=== PATIENT | female | born 1995 | race Caucasian/White ===

== ENCOUNTER 2020-09-27 07:39 | Emergency (ER) | payer BC, OTHER ==
--- NOTE | 2020-09-27 08:03 | EDM.PDOC ---
ED HPI GENERAL MEDICAL PROBLEM - General Chief Complaint: Abdominal Pain Stated Complaint: abd pain Time Seen by Provider: 09/27/20 07:46 Source of Information: Reports: Patient History Limitations: Reports: No Limitations - History of Present Illness INITIAL COMMENTS - FREE TEXT/NARRATIVE: Patient comes in the emergency department complaint of right upper abdominal/flank discomfort. Patient states that she is 20 weeks 2 para 0And states that she started having discomfort on the right upper quadrant/flank region yesterday throughout the day as she was drinking water though discomfort did get better throughout the day however this morning she woke up in significant amount of discomfort. She states it is reproducible and when she is rubbing it it does feel little bit better however she states that the constant discomfort in the right upper flank radiating to the right upper quadrant In the front of her abdomen. Patient denies any trauma, bleeding, hesitancy, burning with urination patient states that she has been feeling relatively well and has not had any major concerns. She has noticed that this morning that she is more nauseated than she has been in the past. She denies any chest pain, shortness of breath, dizziness, lightheadedness, abdominal cramping, genitourinary concerns, or peripheral edema. Patient states that she is been relatively healthy and has no major concerns or complaints this morning. Onset: Gradual Quality: Reports: Other Severity: Mild Improves with: Reports: Rest Worsens with: Reports: Movement Associated Symptoms: Reports: No Other Symptoms Right Abdominal Pain Score (Numeric/FACES): 7 - Related Data Allergies Allergy/AdvReac Type Severity Reaction Status Date / Time acetaminophen [From [place]] AdvReac Vomiting Verified 09/27/20 09:12 hydrocodone [From [facility]] AdvReac Vomiting Verified 09/27/20 09:12 Home Meds: Home Meds No122/Iron/Folic Acid [ Multi Tablet] 1 each PO DAILY 09/27/20 [History] ED ROS GENERAL - Review of Systems Review Of Systems: See Below Constitutional: Reports: No Symptoms HEENT: Reports: No Symptoms Respiratory: Reports: No Symptoms Cardiovascular: Reports: No Symptoms Endocrine: Reports: No Symptoms : Reports: No Symptoms Musculoskeletal: Reports: No Symptoms Skin: Reports: No Symptoms Neurological: Reports: No Symptoms Psychiatric: Reports: No Symptoms Hematologic/Lymphatic: Reports: No Symptoms Immunologic: Reports: No Symptoms ED EXAM, GENERAL - Physical Exam Exam: See Below Exam Limited By: No Limitations General Appearance: Alert, WD/WN, No Apparent Distress Throat/Mouth: Normal Inspection, Normal Lips, No Airway Compromise Head: Atraumatic, Normocephalic Neck: Normal Inspection, Supple, Non-Tender, Full Range of Motion Respiratory/Chest: No Respiratory Distress, No Accessory Muscle Use, Chest Non- Tender Cardiovascular: Normal Peripheral Pulses, Regular Rate, Rhythm, No Edema GI/Abdominal: Normal Bowel Sounds, Soft, Other (fundal height 22 weeks, heart tone 145 ) Back Exam: Normal Inspection, Full Range of Motion, CVA Tenderness (R) Extremities: Normal Inspection, Normal Range of Motion, Non-Tender, No Pedal Edema, Normal Capillary Refill Neurological: Alert, Oriented, CN II-XII Intact, Normal Cognition, Normal Gait Psychiatric: Normal Affect, Normal Mood Skin Exam: Warm, Dry, Intact, Normal Color, No Rash Course - Vital Signs Last Recorded V/S: Last Vital Signs Temp 36.6 C 09/27/20 07:40 Pulse 88 09/27/20 07:40 Resp 16 09/27/20 07:40 BP 108/45 L 09/27/20 07:40 Pulse Ox 97 09/27/20 07:40 - Orders/Labs/Meds Orders: Active Orders 24 hr Category Date Time Status CULTURE URINE [RM] Stat Lab 09/27/20 08:10 Received Sodium Chloride 0.9% [Normal Saline] 1,000 ml Med 09/27/20 09:00 Active IV ONETIME Sodium Chloride 0.9% [Saline Flush] Med 09/27/20 08:48 Active 10 ml FLUSH ASDIRECTED PRN Peripheral IV Insertion Adult [OM.PC] Stat Oth 09/27/20 08:47 Ordered Medication Orders Sodium Chloride (Normal Saline) 1,000 mls @ 999 mls/hr IV ONETIME ONE Stop: 09/27/20 10:00 Last Admin: 09/27/20 09:01 Dose: 999 mls/hr Documented by: MAKSIM Sodium Chloride (Saline Flush) 10 ml FLUSH ASDIRECTED PRN PRN Reason: Keep Vein Open Labs: Laboratory Tests 09/27/20 09/27/20 09/27/20 Range/Units 08:09 08:09 08:10 WBC 7.2 (4.0-10.0) x10^3/uL RBC 3.55 L (4.00-5.50) x10^6/uL Hgb 11.4 L (12.0-16.0) g/dL Hct 33.6 (33.0-47.0) % MCV 94.6 H (78.0-93.0) fL MCH 32.1 H (26.0-32.0) pg MCHC 33.9 (32.0-36.0) g/dL RDW Coeff of Zonia 13.6 (10.0-15.0) % Plt Count 274 (130-400) x10^3/uL Neut % (Auto) 72.6 (50.0-80.0) % Lymph % (Auto) 19.1 L (25.0-50.0) % [place] % (Auto) 6.1 (2.0-11.0) % Eos % (Auto) 1.8 (0.0-4.0) % Baso % (Auto) 0.4 (0.2-1.2) % Sodium 138 (136-145) mmol/L Potassium 3.8 (3.5-5.1) mmol/L Chloride 103 (98-107) mmol/L Carbon Dioxide 24 (21-32) mmol/L Anion Gap 14.8 (5-15) mmol/L BUN 8 (7-18) mg/dL Creatinine 0.6 (0.55-1.02) mg/dL Est Cr Clr Drug Dosing TNP Estimated GFR (MDRD) > 60 Glucose 79 (74-106) mg/dL Calcium 8.8 (8.5-10.1) mg/dL Corrected Calcium 9.60 (8.5-10.1) mg/dL Total Bilirubin 0.4 (0.2-1.0) mg/dL AST 11 L (15-37) U/L ALT 19 (14-59) U/L Alkaline Phosphatase 81 (46-116) U/L Total Protein 6.8 (6.4-8.2) g/dL Albumin 3.0 L (3.4-5.0) g/dL Globulin 3.8 Albumin/Globulin Ratio 0.79 Urine Color Yellow (YELLOW) Urine Appearance Turbid H (CLEAR) Urine pH 5.5 (5.0-8.0) Ur Specific [place] 1.020 Urine Protein Negative (NEGATIVE) mg/dL Urine Glucose (UA) Negative (NEGATIVE) mg/dL Urine Ketones Negative (NEGATIVE) mg/dL Urine Occult Blood Negative (NEGATIVE) Urine Nitrite Negative (NEGATIVE) Urine Bilirubin Negative (NEGATIVE) Urine Urobilinogen 0.2 (0.2) EU/dL Ur Leukocyte Esterase Small H (NEGATIVE) Urine RBC 0-5 (NOT SEEN) /HPF Urine WBC 5-10 H (NOT SEEN) /HPF Ur Squamous Epith Cells Many H (NEGATIVE) /HPF Amorphous Sediment Many Urine Bacteria Few H (NEGATIVE) /HPF Urine Mucus Few H (NEGATIVE) /LPF Meds: Medications Generic Name Dose Route Start Last Admin Trade Name Freq PRN Reason Stop Dose Admin Sodium Chloride 1,000 mls @ 999 mls/hr 09/27/20 09:00 09/27/20 09:01 Normal Saline IV 09/27/20 10:00 999 mls/hr ONETIME ONE Administration Sodium Chloride 10 ml 09/27/20 08:48 Saline Flush FLUSH ASDIRECTED PRN Keep Vein Open Discontinued Medications Generic Name Dose Route Start Last Admin Trade Name Freq PRN Reason Stop Dose Admin Hydromorphone HCl 0.5 mg 09/27/20 08:48 09/27/20 09:00 Dilaudid IV 09/27/20 08:49 0.5 mg ONETIME ONE Administration Ondansetron HCl 4 mg 09/27/20 07:52 09/27/20 08:07 Zofran Odt PO 09/27/20 07:53 4 mg ONETIME ONE Administration Departure - Departure Time of Disposition: 09:25 Disposition: Home, Self-Care 01 Condition: Good Clinical Impression: Flank pain Abdominal pain Qualifiers: Abdominal location: right upper quadrant Qualified Code(s): R10.11 - Right upper quadrant pain - Discharge Information *PRESCRIPTION DRUG MONITORING PROGRAM REVIEWED*: Not Applicable *COPY OF PRESCRIPTION DRUG MONITORING REPORT IN PATIENT MAYA: Not Applicable Instructions: Flank Pain, Adult, [id number] Forms: ED Department Discharge Additional Instructions: 1. Please report directly to [facility] Emergency Room 2. Please do not eat or drink anything prior to arrival to [facility] or make any unnecessary stops Sepsis Event Note (ED) - Focused Exam Vital Signs: Vital Signs Temp Pulse Resp BP Pulse Ox 09/27/20 07:40 36.6 C 88 16 108/45 L 97 - My Orders Last 24 Hours: My Active Orders 09/27/20 08:10 CULTURE URINE [RM] Stat 09/27/20 08:47 Peripheral IV Insertion Adult [OM.PC] Stat 09/27/20 08:48 Sodium Chloride 0.9% [Saline Flush] 10 ml FLUSH ASDIRECTED PRN 09/27/20 09:00 Sodium Chloride 0.9% [Normal Saline] 1,000 ml IV ONETIME - Assessment/Plan Last 24 Hours: My Active Orders 09/27/20 08:10 CULTURE URINE [RM] Stat 09/27/20 08:47 Peripheral IV Insertion Adult [OM.PC] Stat 09/27/20 08:48 Sodium Chloride 0.9% [Saline Flush] 10 ml FLUSH ASDIRECTED PRN 09/27/20 09:00 Sodium Chloride 0.9% [Normal Saline] 1,000 ml IV ONETIME Assessment:: 1. flank pain/ RUQ pain Plan: 1. Labs completed in the ER. Results reviewed with the patient 2. UA completed in ER 3. Zofran given in the ER to help with nausea 4. Patient developed significant discomfort and nausea. Consultation completed with [facility] who agrees and will accept this patient transfer for further evaluation and management. 5. 1 L NS given 6. Dilaudid 0.5mg IV given for pain 7. Patient will be transferred to a higher level of care for further ultrasound and management. 8. Patient and nursing staff was updated regarding the plan of care 9. Education provided the patient regarding activity, diet, rest, [id number] medication modalities, and follow-up care was provided 10. Patient and family are agreeable to the above plan of care 11. All questions and concerns were addressed with the patient and family prior to discharge
[2020-09-27] MEDS: Ondansetron 4 MG Tab.DIS PO ONE (08:07)
[2020-09-27 08:32] LABS: CHLORIDE,CL 103 mmol/L (98-107); SODIUM,NA 138 mmol/L (136-145)
[2020-09-27 08:34] LABS: ANION GAP 14.8 mmol/L (5-15)
[2020-09-27] MEDS ORDERED: Sodium Chloride 0.9% 10 ML Syringe FLUSH PRN (08:48)
[2020-09-27] MEDS: HYDROmorphone 0.5 MG/0.5 ML Syringe IV ONE (09:00)
[2020-09-27] MEDS: Sodium Chloride 0.9% 1,000 ML IV ONE (09:01)
== END 2020-09-27 09:40 | disposition home or self-care (01) ==
LOC: VM.ED 07:39
DX: O99.891 Other specified diseases and conditions complicating pregnancy (principal); R10.11 Right upper quadrant pain; Z88.5 Allergy status to narcotic agent; Z3A.20 20 weeks gestation of pregnancy
CPT/HCPCS: 36415; 80053; 81001; 85025; 87086; 96374; 99284; 99284-25; A9270-GY; J1170; J7030